=== PATIENT | female | born 1940 | race Caucasian/White ===

== ENCOUNTER 2016-08-10 16:04 | Outpatient (CLI) | payer MEDICARE, BC | END 2016-08-10 16:05 | disposition home or self-care (01) | LOC: HPCALD 16:04 | PROVIDERS: ATTEND Family Medicine | DX: R22.9 Localized swelling, mass and lump, unspecified (principal) ==

== ENCOUNTER 2016-09-28 11:25 | Outpatient (CLI) | payer MEDICARE, BC ==
--- NOTE | 2016-09-28 16:33 | RAD ---
CHEST TWO VIEWS: Date: 09-28-16 Comparison: 05-20-16 FINDINGS: There have been no significant interval changes. The heart is normal in size. Calcification is see n in the aortic arch. The lungs are mildly hyperexpanded consistent with the clinical history of [place] PD. Apical scarring is seen in the right lung apex and is no different than before. There are no a cute infiltrates. Mild degenerative changes are seen in the spine. IMPRESSION: No acute thoracic finding. POS: [facility]
== END 2016-09-28 11:26 | disposition home or self-care (01) ==
LOC: BURRAD 11:25
PROVIDERS: ATTEND Family Medicine
DX: J44.9 Chronic obstructive pulmonary disease, unspecified (principal)
CPT/HCPCS: 71020

== ENCOUNTER 2016-11-09 09:11 | Outpatient (CLI) | payer MEDICARE, BC ==
[2016-11-09 10:04] LABS: ALT (SGPT) 12 U/L (0-55); AST (SGOT) 16 U/L (5-34); Alkaline Phosphatase 56 U/L (40-150); Anion Gap 15 mmol/L (10-20); BUN (Urea Nitrogen) 15 mg/dL (9.8-20.1); Bilirubin, Total 0.8 mg/dL (0.2-1.2); Calc. Creatinine Clearance 0 mL/min (70-130); Carbon Dioxide 27 mmol/L (23-31); Chloride 98 mmol/L (98-107); Estimated GFR-MDRD 68; Globulin 2.9 g/dL (2.4-3.5); Glucose 100 mg/dL (83-110); Hemoglobin A1c 5.7 % (4.0-6.0); Potassium 4.3 mmol/L (3.5-5.1); Protein, Total 6.9 g/dL (5.8-8.1); Sodium 136 mmol/L (136-145)
[2016-11-09 10:24] LABS: Free T4 (Free Thyroxine) 1.15 ng/dL (0.70-1.48); Thyroid Stimulating Hormone 1.2521 uIU/mL (0.35-4.94); Vitamin D, 25 Hydroxy 60.2 ng/mL (> 30.0)
== END 2016-11-09 09:12 | disposition home or self-care (01) ==
LOC: BURLAB 09:11
PROVIDERS: ATTEND Urology
DX: R31.29 Other microscopic hematuria (principal); E55.9 Vitamin D deficiency, unspecified; E89.0 Postprocedural hypothyroidism; R73.01 Impaired fasting glucose
CPT/HCPCS: 36415; 80053; 82306; 83036; 84439; 84443; 84481

== ENCOUNTER 2016-11-17 12:14 | Outpatient (CLI) | payer MEDICARE, BC ==
[2016-11-17 13:06] LABS: Bilirubin Negative (Negative); Blood, Urine Trace (Negative); Clarity Clear (Clear); Glucose, Urine (Dipstick) Negative (Negative); Leukocyte Negative (Negative); Nitrite Negative (Negative); Protein, Urine (Dipstick) Negative (Neg-Trace); Specific Gravity, Urine 1.015 (1.005-1.030); Urobilinogen 0.2 mg/dL (0.2-1.0)
[2016-11-17 13:24] LABS: RBC/HPF 0-3 HPF (0-3)
[2016-11-17 13:25] LABS: Bacteria/HPF Rare-Few HPF (None Seen); Squamous Epithelial 0-3 HPF (0-3); WBC/HPF 0-3 HPF (0-3)
== END 2016-11-17 12:15 | disposition home or self-care (01) ==
LOC: BURLAB 12:14
PROVIDERS: ATTEND Urology
DX: R31.29 Other microscopic hematuria (principal)
CPT/HCPCS: 81001; 87086

== ENCOUNTER 2016-12-23 09:32 | Outpatient (CLI) | payer MEDICARE, BC | END 2016-12-23 09:33 | disposition home or self-care (01) | LOC: BURLAB 09:32 | PROVIDERS: ATTEND Physician Assistant Medical | DX: R93.3 Abnormal findings on diagnostic imaging of other parts of digestive tract (principal) | CPT/HCPCS: 36415; 82565 ==

== ENCOUNTER 2017-04-19 09:33 | Outpatient (CLI) | payer MEDICARE, BC ==
[2017-04-19 11:09] LABS: Anion Gap 15 mmol/L (10-20); BUN (Urea Nitrogen) 15 mg/dL (9.8-20.1); Calc. Creatinine Clearance 0 mL/min (70-130); Calcium 9.6 mg/dL (7.8-10.44); Carbon Dioxide 27 mmol/L (23-31); Cardiac Risk 3.9 (Less than 4.5); Chloride 94 mmol/L (98-107); Cholesterol 178 mg/dl (< 200 Desired); Estimated GFR-MDRD 67; Glucose 125 mg/dL (83-110); HDL Cholesterol 46 mg/dL (>60 Neg Risk); LDL Cholesterol, Calculated 111 mg/dL; Potassium 4.4 mmol/L (3.5-5.1); Sodium 132 mmol/L (136-145); Triglycerides 103 mg/dL (Less than 150)
== END 2017-04-19 09:34 | disposition home or self-care (01) ==
LOC: BURLAB 09:33
PROVIDERS: ATTEND Internal Medicine Cardiovascular Disease
DX: E78.2 Mixed hyperlipidemia (principal); I10 Essential (primary) hypertension
CPT/HCPCS: 36415; 80048; 80061

== ENCOUNTER 2017-07-08 10:21 | Outpatient (CLI) | payer MEDICARE, BC ==
--- NOTE | 2017-07-08 16:38 | RAD ---
LEFT KNEE 4 VIEWS: Date: 07/08/17 No fracture seen. There is a small joint effusion of unknown etiology. The joint space is preserved. There is very minor bony spurring in the joint. Faint arterial calcification is seen in the popliteal region. IMPRESSION: Minimal joint fluid. POS: HOME
== END 2017-07-08 10:22 | disposition home or self-care (01) ==
LOC: BURRAD 10:21
PROVIDERS: ATTEND Family Medicine
DX: M25.562 Pain in left knee (principal)

== ENCOUNTER 2017-08-22 13:19 | Emergency (ER) | payer MEDICARE, BC | END 2017-08-22 14:01 | disposition home or self-care (01) | LOC: BURERS 13:19 | DX: J11.1 Influenza due to unidentified influenza virus with other respiratory manifestations (principal); E05.90 Thyrotoxicosis, unspecified without thyrotoxic crisis or storm; K21.9 Gastro-esophageal reflux disease without esophagitis; I10 Essential (primary) hypertension; I48.91 Unspecified atrial fibrillation; F41.9 Anxiety disorder, unspecified; F17.210 Nicotine dependence, cigarettes, uncomplicated | CPT/HCPCS: 99283 ==

== ENCOUNTER 2018-05-14 09:33 | Emergency (ER) | payer MEDICARE, BC | END 2018-05-14 09:55 | disposition home or self-care (01) | LOC: BURERS 09:33 | DX: L03.114 Cellulitis of left upper limb (principal); L03.113 Cellulitis of right upper limb; E05.90 Thyrotoxicosis, unspecified without thyrotoxic crisis or storm; K21.9 Gastro-esophageal reflux disease without esophagitis; I48.91 Unspecified atrial fibrillation; F41.9 Anxiety disorder, unspecified; F17.210 Nicotine dependence, cigarettes, uncomplicated; Z79.899 Other long term (current) drug therapy; Z79.82 Long term (current) use of aspirin | CPT/HCPCS: 99283 ==

== ENCOUNTER 2023-07-22 08:52 | Outpatient (CLI) | payer MEDICARE, BC | END 2023-07-22 08:53 | disposition home or self-care (01) | LOC: BURRAD 08:52 | PROVIDERS: ATTEND Family Medicine | DX: M54.50 Low back pain, unspecified (principal); R07.81 Pleurodynia; M47.816 Spondylosis without myelopathy or radiculopathy, lumbar region | CPT/HCPCS: 72110 ==

== ENCOUNTER 2024-01-27 20:52 | Emergency (ER) | payer MEDICARE, BC ==
[2024-01-27] MEDS ORDERED: Morphine 2 MG/ML VIAL ONE (21:14)
[2024-01-27] MEDS ORDERED: Ondansetron PF 4 MG/2 ML Vial ONE (21:15)
[2024-01-27] MEDS ORDERED: Boostrix 0.5 ML (Tdap) VIAL (>/=7 yrs of age) ONE (21:15)
[2024-01-27 21:24] LABS: #Basophils 0.1 thou/uL (0.0-0.2); #Eosinphils 0.1 thou/uL (0.0-0.7); #Lymphocytes 1.3 thou/uL (1.20-3.40); #Monocytes 1.2 thou/uL (0.11-0.59); #Neutrophils 15.3 thou/uL (1.40-6.50); %Basophils 0.6 % (0.0-1.0); %Eosinophils 0.5 % (0.0-10.0); %Lymphocytes 7.3 % (21.0-51.0); %Monocytes 6.7 % (0.0-10.0); Hemoglobin 14.4 g/dL (12.0-16.0); Mean Corpuscular HGB CONC 32.7 g/dL (32.0-36.0); Mean Corpuscular Hemoglobin 31.9 pg (27.0-31.0); Mean Corpuscular Volume 97.4 fl (78.0-98.0); Mean Platelet Volume 7.4 fL (7.4-10.4); Platelet Count 262 10x3/uL (130-400); RBC Distribution Width 13.8 % (11.5-14.5); Red Blood Cell (RBC) Count 4.51 mill/uL (4.20-5.40)
[2024-01-27 21:35] LABS: INR-International Normal Ratio 1.1
[2024-01-27 21:36] LABS: PTT 28.3 sec (22.9-36.1)
[2024-01-27 21:44] LABS: ALT (SGPT) 23 U/L (8-55); AST (SGOT) 24 U/L (5-34); Albumin 4.1 g/dL (3.4-4.8); Alkaline Phosphatase 49 U/L (40-110); Anion Gap 14 mmol/L (10-20); BUN (Urea Nitrogen) 15 mg/dL (9.8-20.1); Bilirubin, Total 0.8 mg/dL (0.2-1.2); Calc. Creatinine Clearance 0 mL/min (70-130); Calcium 9.8 mg/dL (7.8-10.44); Carbon Dioxide 23 mmol/L (23-31); Chloride 102 mmol/L (98-107); Estimated GFR 67; Glucose 139 mg/dL (83-110); Potassium 4.4 mmol/L (3.5-5.1); Protein, Total 7.1 g/dL (5.8-8.1); Sodium 135 mmol/L (136-145)
[2024-01-27] MEDS ORDERED: Bacitracin 1 PK ONE (22:09)
[2024-01-27] MEDS ORDERED: HYDROcodone/Acetaminophen 5/325 mg Tablet ONE (22:54)
== END 2024-01-27 22:58 | disposition home or self-care (01) ==
LOC: BURERS 20:52
DX: S32.592A Other specified fracture of left pubis, initial encounter for closed fracture (principal); S00.83XA Contusion of other part of head, initial encounter; I10 Essential (primary) hypertension; F17.210 Nicotine dependence, cigarettes, uncomplicated; Z23 Encounter for immunization; W18.30XA Fall on same level, unspecified, initial encounter
CPT/HCPCS: 70450; 70486; 71045; 72125; 72170; 73060; 73502; 80053; 85025; 85610; 85730; 90471; 90715; 96374; 96375; 99284; J2272; J2405

== ENCOUNTER 2024-02-09 16:20 | Inpatient (IN) | payer MEDICARE, BC ==
[2024-02-09 22:52] VITALS: BMI 17.9
[2024-02-10] MEDS: Acetaminophen/Codeine 30-300mg Tablet PO PRN (01:55)
[2024-02-10] MEDS: Levothyroxine Sodium 50 MCG TAB PO SCH (05:25)
[2024-02-10] MEDS ORDERED: Apixaban 2.5 MG TAB PO SCH (09:00)
[2024-02-10] MEDS ORDERED: Amiodarone 200 MG TAB PO SCH (09:00)
[2024-02-10] MEDS ORDERED: Aspirin 81 mg Enteric Coated Tablet PO SCH (09:00)
[2024-02-10] MEDS ORDERED: Cholecalciferol 1,000 UNITS (25 MCG) TAB PO SCH (09:00)
[2024-02-10] MEDS ORDERED: Ezetimibe 10 MG TAB PO SCH (09:00)
[2024-02-10] MEDS ORDERED: Lorazepam 1 MG TAB PO SCH (09:00)
[2024-02-10] MEDS ORDERED: Rosuvastatin 10 MG TAB PO SCH (09:00)
[2024-02-10] MEDS: Apixaban 2.5 MG TAB PO SCH (10:50)
[2024-02-10] MEDS: Ezetimibe 10 MG TAB PO SCH (10:50)
[2024-02-10] MEDS: Lorazepam 1 MG TAB PO SCH (10:50)
[2024-02-10] MEDS: Amiodarone 200 MG TAB PO SCH (10:51)
[2024-02-10] MEDS: Aspirin 81 mg Enteric Coated Tablet PO SCH (10:51)
[2024-02-10] MEDS: Cholecalciferol 1,000 UNITS (25 MCG) TAB PO SCH (10:51)
[2024-02-10] MEDS: Rosuvastatin 10 MG TAB PO SCH (20:38)
[2024-02-10] MEDS: CO Q-10 CAPSULE 100 MG PO SCH (20:38)
[2024-02-10] MEDS: QUEtiapine 25 MG TAB PO SCH (20:40)
[2024-02-10] MEDS: Multivitamin W/ Minerals 1 TAB PO SCH (20:40)
[2024-02-10] MEDS ORDERED: MAGNESIUM CHLORIDE 64 MG TABLET PO SCH (21:00)
[2024-02-10] MEDS ORDERED: Multivitamin W/ Minerals 1 TAB PO SCH (21:00)
[2024-02-10] MEDS ORDERED: CO Q-10 CAPSULE 100 MG PO SCH (21:00)
[2024-02-10] MEDS ORDERED: QUEtiapine 25 MG TAB PO SCH (21:00)
[2024-02-11] MEDS: Levothyroxine Sodium 50 MCG TAB PO SCH (04:59)
[2024-02-11 18:54] LABS: Bilirubin Negative (Negative); Blood, Urine Negative (Negative); Clarity Clear (Clear); Glucose, Urine (Dipstick) Negative (Negative); Ketone, Urine Negative (Negative); Leukocyte Negative (Negative); Nitrite Negative (Negative); Protein, Urine (Dipstick) Negative (Neg-Trace)
[2024-02-11 19:05] LABS: Bacteria/HPF Rare-Few HPF (None Seen); RBC/HPF 0-3 HPF (0-3); Squamous Epithelial 0-3 HPF (0-3); WBC/HPF 0-3 HPF (0-3)
[2024-02-12 05:17] LABS: #Basophils 0.1 thou/uL (0.0-0.2); #Eosinphils 0.5 thou/uL (0.0-0.7); #Lymphocytes 1.4 thou/uL (1.20-3.40); #Monocytes 1.2 thou/uL (0.11-0.59); #Neutrophils 7.4 thou/uL (1.40-6.50); %Basophils 1.3 % (0.0-1.0); %Eosinophils 4.3 % (0.0-10.0); %Lymphocytes 13.2 % (21.0-51.0); %Monocytes 11.3 % (0.0-10.0); %Neutrophils 69.9 % (42.0-75.0); Hematocrit 30.7 % (36.0-47.0); Hemoglobin 10.3 g/dL (12.0-16.0); Mean Corpuscular HGB CONC 33.5 g/dL (32.0-36.0); Mean Corpuscular Hemoglobin 31.8 pg (27.0-31.0); Mean Corpuscular Volume 94.9 fl (78.0-98.0); Mean Platelet Volume 6.8 fL (7.4-10.4); Platelet Count 436 10x3/uL (130-400); RBC Distribution Width 13.5 % (11.5-14.5); Red Blood Cell (RBC) Count 3.23 mill/uL (4.20-5.40); White Blood Cell (WBC) Count 10.6 10x3/uL (4.8-10.8)
[2024-02-12 05:31] LABS: ALT (SGPT) 21 U/L (8-55); AST (SGOT) 22 U/L (5-34); Albumin 2.2 g/dL (3.4-4.8); Alkaline Phosphatase 77 U/L (40-110); Anion Gap 13 mmol/L (10-20); BUN (Urea Nitrogen) 10 mg/dL (9.8-20.1); Bilirubin, Total 0.5 mg/dL (0.2-1.2); Calc. Creatinine Clearance 44 mL/min (70-130); Calcium 8.2 mg/dL (7.8-10.44); Carbon Dioxide 24 mmol/L (23-31); Chloride 102 mmol/L (98-107); Estimated GFR 76; Globulin 3.2 g/dL (2.4-3.5); Glucose 106 mg/dL (83-110); Potassium 4.3 mmol/L (3.5-5.1); Protein, Total 5.4 g/dL (5.8-8.1); Sodium 135 mmol/L (136-145)
[2024-02-12] MEDS: Fleet Saline Enema 133 ML BOT PR SCH (15:30)
[2024-02-12] MEDS: Fleet Saline Enema 133 ML BOT ONE (16:30)
[2024-02-13] MEDS: Polyethylene Glycol 3350 17 GM Packet PO SCH (09:47)
[2024-02-15] MEDS: Acetaminophen 325 MG TAB PO PRN (13:20)
[2024-02-16] MEDS: Amiodarone 200 MG TAB PO SCH (09:39)
[2024-02-17] MEDS: Bisacodyl 10 MG SUPP PR PRN (11:39)
[2024-02-17] MEDS ORDERED: Lactulose 20 GM (30 mL) UDCUP PO PRN (15:29)
[2024-02-17] MEDS: Milk Of Magnesia 30 ML UDCUP PO PRN (15:52)
[2024-02-17] MEDS: Fleet Saline Enema 133 ML BOT PR SCH (20:04)
[2024-02-17] MEDS: Fleet Saline Enema 133 ML BOT ONE (20:08)
[2024-02-19 05:21] LABS: Hematocrit 34.4 % (36.0-47.0); Hemoglobin 11.2 g/dL (12.0-16.0); Platelet Count 438 10x3/uL (130-400)
[2024-02-19] MEDS: Megestrol Acetate 40 MG TAB PO SCH (20:21)
[2024-02-20] MEDS: Ibuprofen 800 MG TAB PO PRN (09:45)
[2024-02-21 17:14] VITALS: BMI 17.3
[2024-02-25 05:48] VITALS: BP 126/60; TEMP 97.8
[2024-03-01] MEDS ORDERED: Amiodarone 200 MG TAB PO SCH (09:00)
== END 2024-02-25 13:40 | disposition home or self-care (01) | DRG 948 ==
LOC: BURMED 22:42 → UNDOADMIN 22:42
PROVIDERS: ADMIT Family Medicine; ATTEND Family Medicine
DX: R53.81 Other malaise (principal); S32.592D Other specified fracture of left pubis, subsequent encounter for fracture with routine healing; I48.91 Unspecified atrial fibrillation; K59.00 Constipation, unspecified; R33.9 Retention of urine, unspecified; E03.9 Hypothyroidism, unspecified; F41.9 Anxiety disorder, unspecified; D72.829 Elevated white blood cell count, unspecified; Z79.82 Long term (current) use of aspirin; Z79.899 Other long term (current) drug therapy
CPT/HCPCS: 36415; 74018; 80053; 81001; 85014; 85018; 85025; 85049; 87086; S0179